=== PATIENT | female | born 2000 | race Caucasian/White ===

== ENCOUNTER 2019-07-20 02:07 | Outpatient (CLI) | payer OTHER ==
[2019-07-20] MEDS ORDERED: LACTATED RINGERS 1,000 ML ONE (03:34)
[2019-07-20] MEDS ORDERED: LACTATED RINGERS 1,000 ML IV ONE (04:32)
[2019-07-20 05:09] LABS: Bacteria,Urine 1+ /HPF (Negative); Bilirubin,Urine NEG (Negative); Blood,Urine SM (Negative); Color,Urine Yellow (Yellow); Protein,Urine <15 mg/dL mg/dL (Negative); Urobilinogen,Urine < 2.0 mg/dL (<2.0)
[2019-07-20 05:12] LABS: Amphetamine Screen,Urine PRESUMPTIVE NEGATIVE; Benzodiazepines Screen,Urine PRESUMPTIVE NEGATIVE; Cannabinoid Screen,Urine PRESUMPTIVE NEGATIVE; Cocaine Screen,Urine PRESUMPTIVE NEGATIVE; Methadone Screen,Urine PRESUMPTIVE NEGATIVE; Opiate Screen,Urine PRESUMPTIVE NEGATIVE
[2019-07-20] MEDS ORDERED: TERBUTALINE 1 MG/1 ML INJ SUB-Q ONE (05:26)
--- NOTE | 2019-07-20 06:17 | Ultrasound Report ---
ULTRASOUND BIOPHYSICAL PROFILE AND LIMITED OB ULTRASOUND INDICATION / CLINICAL INFORMATION: R/O ABRUPTION. well-being. COMPARISON: None available. FINDINGS: BREATHING MOVEMENT = 2 GROSS BODY MOVEMENT = 2 TONE = 2 QUALITATIVE AMNIOTIC FLUID VOLUME = 2 TOTAL BIOPHYSICAL SCORE = 8/8 AMNIOTIC FLUID INDEX (cm) = 15.2 PRESENTATION: Cephalic. HEART RATE (beats per minute): 138 The placenta is located anteriorly on the left, is grade 2 and is free of the os. There is no evidenc e of abruption. IMPRESSION: 1. biophysical profile = 8/8 2. No evidence of abruption. Signer Name: Haroldo Conway MD Signed: 07/20/2019 6:13 AM Workstation Name: [id number]
[2019-07-20] MEDS ORDERED: ACETAMINOPHEN 500 MG TAB PO ONE (06:30)
[2019-07-20 06:44] VITALS: BP 115/62
== END 2019-07-20 06:56 | disposition home or self-care (01) ==
LOC: TRG 02:07
PROVIDERS: ATTEND Obstetrics & Gynecology
DX: O26.893 Other specified pregnancy related conditions, third trimester (principal); M54.9 Dorsalgia, unspecified; O47.03 False labor before 37 completed weeks of gestation, third trimester; Z3A.34 34 weeks gestation of pregnancy
CPT/HCPCS: 76815; 76819; 80307; 81001; 87086; 96360; 96372; J3105; J7120

== ENCOUNTER 2019-08-30 05:21 | Inpatient (IN) | payer OTHER, SELFPAY ==
[2019-08-30 08:38] LABS: Basophils % (Auto) 0.4 % (0.0-1.8); Eosinophils # (Auto) 0.1 K/mm3 (0.0-0.4); Eosinophils % (Auto) 1.3 % (0.0-4.3); Hematocrit 39.4 % (30.3-42.9); Hemoglobin 13.4 gm/dl (10.1-14.3); Lymphocytes # (Auto) 1.4 K/mm3 (1.2-5.4); Lymphocytes % (Auto) 16.2 % (13.4-35.0); Mean Corpuscular HGB Conc 34 % (30-34); Mean Corpuscular Volume 94 fl (79-97); Monocytes # (Auto) 0.6 K/mm3 (0.0-0.8); Monocytes % (Auto) 6.7 % (0.0-7.3); Platelet Count 232 K/mm3 (140-440); Red Blood Count 4.18 M/mm3 (3.65-5.03); Red Cell Distribution Width 13.4 % (13.2-15.2)
[2019-08-30] MEDS ORDERED: LACTATED RINGERS 1,000 ML ONE (09:08)
[2019-08-30] MEDS ORDERED: MINERAL OIL 30 ML ORAL LIQD PO PRN (10:50)
[2019-08-30] MEDS ORDERED: TERBUTALINE 1 MG/1 ML INJ SUB-Q PRN (10:50)
[2019-08-30] MEDS ORDERED: ePHEDrine SULFATE 50 MG/1 ML INJ IV PRN ×2 (10:50→19:37)
[2019-08-30] MEDS ORDERED: LIDOCAINE (2%) 20 MG/1 ML VIAL 20 ML MDV INFILTRATI ONE ×2 (10:50→14:21)
[2019-08-30] MEDS ORDERED: TERBUTALINE 1 MG/1 ML INJ IVP PRN (10:50)
[2019-08-30] MEDS ORDERED: BUTORPHANOL 2 MG/1 ML INJ IV PRN ×2 (10:50)
--- NOTE | 2019-08-30 10:56 | History and Physical Report ---
History of Present Illness Date of examination: 08/30/19 Date of admission: 08/30/19 Chief complaint: Contractions History of present illness: 18yo G 1 P o @ 39 weeks 6 days here with c/o contractions. She reports +FMs but denies VB or LOF. She is a [facility] patient who initiated care at 11 weeks gestation. Her course has been unremarkable. LABS: O pos, Antibody Screen neg, RI, VDRL neg, HBsAg neg, HIV neg, GC/CT neg, MSAFP neg, Diabetes 86, GBS neg. Past History Past Medical History: no pertinent history Past Surgical History: no surgical history Family/Genetic History: none Social history: single, lives with family, IV drug use. denies: smoking, alcohol abuse, prescription drug abuse - Obstetrical History Expected Date of Delivery: 08/31/19 Actual Gestation: 39 Week(s) 6 Day(s) : 1 Para: 0 Hx # Term Pregnancies: 0 Number of Pregnancies: 0 Spontaneous Abortions: 0 Induced : 0 Number of Living Children: 0 Medications and Allergies Allergies Allergy/AdvReac Type Severity Reaction Status Date / Time No Known Allergies Allergy Verified 07/20/19 04:38 Active Meds: Active Medications Butorphanol Tartrate (Stadol) 1 mg IV Q2H PRN PRN Reason: Pain, Moderate(4-6) LABOR PAIN Butorphanol Tartrate (Stadol) 2 mg IV Q2H PRN PRN Reason: Pain , Severe (7-10) Ephedrine Sulfate (Ephedrine Sulfate) 10 mg IV Q2M PRN PRN Reason: Hypotension Fentanyl (Sublimaze) 100 mcg IV Q2H PRN PRN Reason: Pain,Severe (7-10) LABOR PAIN Oxytocin/Sodium Chloride (Pitocin/Ns 20 Unit/1000ml Drip) 20 units in 1,000 mls @ 125 mls/hr IV DIRECT MAYA Oxytocin/Sodium Chloride (Pitocin/Ns 30 Unit/500ml) 30 units in 500 mls @ 0 mls/hr IV TITR MAYA; Protocol Lactated Ringer's (Lactated Ringers) 1,000 mls @ 125 mls/hr IV DIRECT MAYA Lidocaine (Xylocaine 2%) 20 ml INFILTRATI ONCE ONE Stop: 08/30/19 10:51 Mineral Oil (Mineral Oil) 30 ml PO QHS PRN PRN Reason: Constipation Terbutaline Sulfate (Brethine) 0.25 mg SUB-Q ONCE PRN PRN Reason: Hyperstimulation/Hypertonicity Terbutaline Sulfate (Brethine) 0.25 mg IVP ONCE PRN PRN Reason: Hyperstimulation/Hypertonicity Review of Systems All systems: negative - Vital Signs Vital signs: Vital Signs Pulse BP 70 119/78 08/30/19 06:27 08/30/19 06:27 Temp Pulse Resp BP Pulse Ox 98.8 F 68 18 115/66 98 08/30/19 06:29 08/30/19 10:53 08/30/19 06:29 08/30/19 10:28 08/30/19 10:53 - Obstetrical FHR: auscultation normal, category 1 Uterine Contraction Monitor Mode: External Cervical Dilatation: 4.5 Cervical Effacement Percentage: 70 station: -3 Uterine Contraction Frequency (min): 2-5 Uterine Contraction Pattern: Regular Results Result Diagrams: 08/30/19 08:03 Abnormal lab results 08/30/19 Range/Units 08:03 Seg Neutrophils % 75.4 H (40.0-70.0) % All other labs normal. Assessment and Plan - Patient Problems (1) 39 weeks gestation of Current Visit: Yes Status: Acute (2) Active labor at term Current Visit: Yes Status: Acute Plan to address problem: Admit to L&D with routine labor orders Start oxytocin for labor augmentation Anticipate vaginal delivery
[2019-08-30] MEDS ORDERED: OXYTOCIN 20 UNIT/1000ML DRIP 20 UNITS/1,000 ML BAG IV SCH ×3 (11:00→22:00)
[2019-08-30] MEDS ORDERED: OXYTOCIN DRIP 30 UNITS/500 ML BAG IV SCH (11:00)
[2019-08-30] MEDS: fentaNYL 100 MCG/2 ML INJ IV PRN ×2 (12:11→15:02)
[2019-08-30] MEDS ORDERED: ONDANSETRON 4 MG/2 ML INJ ONE (12:11)
[2019-08-30] MEDS ORDERED: ONDANSETRON 4 MG/2 ML INJ IV PRN ×2 (12:30→21:12)
[2019-08-30] MEDS: LACTATED RINGERS 1,000 ML IV SCH ×2 (13:16→18:00)
--- NOTE | 2019-08-30 17:49 | Event Note ---
Date: 08/30/19 Assumed care of patient at 5:15 PM. RN states patient had been pushing for 30 minutes prior to my coming regional transfer liaison. Contractions every 2-3 minutes, moderate to strong; uterus palpates soft between contractions. Difficulty tracing FHR with external monitor. FSE placed to better trace heart rate. Patient positioned in left lateral position. SVE complete, minus 1 station. Plan epidural. Reviewed FHR tracing; FHR baseline 115 with moderate variability and variable FHR decelerations. Patient has oxygen per face mask at 10 LPM. Pitocin has been turned off. Will consult with Dr. Pinzon re: this patient.
--- NOTE | 2019-08-30 19:00 | Event Note ---
Date: 08/30/19 Patient has been pushing intermittently. Cervix is complete and fetus is at -1 to 0 station with caput. Fetus has been in OP position. Patient has been positioned in left lateral then right lateral position. Patient has agreed to epidural and IV fluid bolus is being given. Called Dr. Pinzon at 18:48 and asked him to come in and evaluate patient due to FHR tracing (variable decelerations) and size of baby and station. Dr. Pinzon states he will come in and evaluate patient. Discussed this plan with patient and her S.O. Contractions are every 2-3 minutes and uterus palpates soft between contractions. Patient is afebrile. VSS.
[2019-08-30] MEDS ORDERED: fentaNYL-BUPIV 2 MCG/ML-0.125% 200 MCG/100 ML BAG EPIDURAL ONE (19:05)
[2019-08-30] MEDS ORDERED: DEXMEDETOMIDINE 200 MCG/2 ML VIAL IV ONE (19:06)
[2019-08-30] MEDS ORDERED: NALOXONE 2 MG/2 ML INJ IV PRN (19:37)
--- NOTE | 2019-08-30 19:37 | Anesthesia Consultation ---
Anesthesia Consult and Med Hx Date of service: 08/30/19 - Airway Anesthetic Teeth Evaluation: Good ROM Head & Neck: Adequate Mental/Hyoid Distance: Adequate Mallampati Class: Class II Intubation Access Assessment: Probably Good - Pulmonary Exam CTA: Yes - Cardiac Exam Cardiac Exam: RRR - Pre-Operative Health Status ASA Pre-Surgery Classification: ASA2 Proposed Anesthetic Plan: Epidural - Pulmonary Hx Asthma: No - Cardiovascular System Hx Hypertension: No - Central Nervous System Hx Seizures: No Hx Psychiatric Problems: No - Endocrine Hx Renal Disease: No Hx Hypothyroidism: No Hx Hyperthyroidism: No - Hematic Hx Anemia: No Hx Sickle Cell Disease: No - Other Systems Hx Alcohol Use: No
[2019-08-30] MEDS ORDERED: BICITRA ORAL LIQD 30ML ONE (19:40)
[2019-08-30] MEDS ORDERED: METOCLOPRAMIDE 10 MG/2 ML INJ ONE (19:40)
[2019-08-30] MEDS ORDERED: FAMOTIDINE 20 MG/2 ML INJ IV ONE ×2 (19:40→20:00)
[2019-08-30] MEDS ORDERED: ceFAZolin/Water 2 GM/20 ML 2 GM/20 ML SYRINGE IV ONE (19:56)
[2019-08-30] MEDS ORDERED: METOCLOPRAMIDE 10 MG/2 ML INJ IV ONE (20:00)
[2019-08-30] MEDS ORDERED: ceFAZolin/Water 2 GM/20 ML 2 GM/20 ML SYRINGE IV SCH (20:00)
[2019-08-30] MEDS ORDERED: BICITRA ORAL LIQD 30ML PO ONE (20:00)
[2019-08-30] MEDS ORDERED: fentaNYL-BUPIV 2 MCG/ML-0.125% 200 MCG/100 ML BAG EPIDURAL SCH (20:00)
[2019-08-30] MEDS ORDERED: LACTATED RINGERS 1,000 ML IV SCH (20:00)
[2019-08-30] MEDS ORDERED: WATER FOR IRRIG STERILE 1,500 ML BOTTLE IR ONE (20:05)
[2019-08-30] MEDS ORDERED: ceFAZolin/STERILE WATER 2 GM/20 ML SYRINGE IV ONE ×2 (20:05→20:20)
[2019-08-30] MEDS ORDERED: SODIUM CHLORIDE 0.9% IRR 1,500 ML BOTTLE IR ONE (20:05)
[2019-08-30] MEDS ORDERED: KETOROLAC 30 MG/1 ML INJ ONE (21:03)
[2019-08-30] MEDS ORDERED: LIDOCAINE 2%/EPINEPHRINE 1:200,000 VIAL (20 ML) INFILTRATI ONE (21:04)
[2019-08-30] MEDS ORDERED: OXYTOCIN 10 UNIT/1 ML INJ ONE (21:04)
[2019-08-30] MEDS ORDERED: SODIUM BICARB 8.4% 50 MEQ/50 ML VIAL IV ONE (21:04)
--- NOTE | 2019-08-30 21:07 | Event Note ---
Date: 08/30/19 CPD: large baby, OP at 0-3, narrow inlet, short maternal stature. Plan: .
[2019-08-30] MEDS ORDERED: LANOLIN/ZINC/DIMETHICONE (LANSINOH) 7 GM TP PRN (21:12)
[2019-08-30] MEDS ORDERED: ACETAMINOPHEN 325 MG TAB PO PRN (21:12)
[2019-08-30] MEDS ORDERED: MORPHINE 4 MG/1 ML INJ IV PRN (21:12)
[2019-08-30] MEDS ORDERED: WITCH HAZEL/ GLYCERIN PAD TP PRN (21:12)
[2019-08-30] MEDS ORDERED: NALOXONE 0.4 MG/1 ML INJ IV PRN (21:12)
--- NOTE | 2019-08-30 21:12 | Operative Report ---
Operative Report Operative Report: Date of surgery: August 30, 2019 Preoperative diagnoses: Full dilatation, non-descent of head, short statur e large baby, occiput posterior position, CPD Postoperative diagnoses: The same. Operation: Lower segment transverse delivery Surgeon:Laura Pinzon MD [place] Department Manager: Richard Sanchez CRNA Anesthesia: Spinal block Estimated blood loss: 500 mL Complications: None Findings: Live baby boy, weight 8 pounds 1 ounce, Apgars 8 and 9, normal ovaries, fallopian tubes uterus. The fetus was in the false maternal pelvis and occiput posterior. Procedure in detail: The patient was taken to the operating room and given a spinal block. Patient was placed in the straight supine position and a Gordon catheter was inserted. The patient was prepped in the abdomen. The drapes were placed. A timeout was done. With the go ahead from the notary public, a Pfannenstiel incision was made. This incision was carried across the subcutaneous layer to the fascia which was also divided transversely. The recti abdominis muscle flaps were stripped from the fascia using a combination of blunt and sharp dissections. The muscles were in the midline to gain access to the anterior parietal peritoneum which was divided after excluding any underlying viscera. The access to the peritoneal cavity was then widened by manual stretching. The bladder blade was applied. The utero vesicle peritoneal flap was divided transversely allowing the bladder to be displaced caudally. The uterine incision was placed in the lower segment transversely. The uterine incision was carried to the decidual layer. The uterine incision was extended on both sides using the bandage scissors. The amniotic sac was ruptured with clear fluid. The head was lifted out of the false maternal pelvis and delivered through the incision using fundal pressure. The airways were bulb suctioned beginning with the mouth. Continuing fundal pressure combined with traction on the mandibular processes of the jaw delivered the rest of the baby. The umbilical cord was double clamped and divided. The baby was carefully transferred to the pediatric team. The placenta was manually removed from the uterine cavity. The uterine cavity was explored and was empty of any placental remnants. The uterine incision was repaired in 2 layers with #1 Vicryl. The surgical line on the uterus was hemostatic. Blood and clots were cleared from the peritoneal cavity. The anterior parietal peritoneum was repaired with #1 Vicryl. The fascia was repaired with #1 Vicryl. The subcutaneous layer was made hemostatic using the Bovie before the skin was closed subcuticularly with 4-0 Vicryl. There were no complications. The estimated blood loss was 500 mL. All sponges and instrument counts were correct. Patient was safely transferred to the recovery room.
--- NOTE | 2019-08-30 21:17 | Post Anesthesia Evaluation ---
- Post Anesthesia Evaluation Patient Participated: Yes Airway Patent: Yes Stable Respiratory Function: Yes Nausea/Vomiting: No Temp > 96.8F: Yes Pain Manageable: Yes Adequeate Hydration: Yes Anesthesia Complications: No Block Receding Appropriately: Yes
[2019-08-31] MEDS: KETOROLAC 30 MG/1 ML INJ IV PRN ×3 (04:02→18:08)
[2019-08-31] MEDS: ceFAZolin/NS 1 GM/50 ML 1 GM/50 ML BAG IV SCH ×2 (04:04→12:07)
[2019-08-31] MEDS ORDERED: D5W/LACTATED RINGERS 1,000 ML IV SCH (05:00)
[2019-08-31 06:20] LABS: Hemoglobin 12.1 gm/dl (10.1-14.3); Mean Corpuscular HGB Conc 34 % (30-34); Mean Corpuscular Volume 95 fl (79-97); Platelet Count 212 K/mm3 (140-440); Red Blood Count 3.79 M/mm3 (3.65-5.03); Red Cell Distribution Width 13.3 % (13.2-15.2)
[2019-08-31 06:33] LABS: Bacteria,Urine 2+ /HPF (Negative); Bilirubin,Urine NEG (Negative); Blood,Urine LG (Negative); Color,Urine Yellow (Yellow); Mucus,Urine FEW /HPF; Urobilinogen,Urine < 2.0 mg/dL (<2.0)
[2019-08-31 06:35] LABS: RBC,Urine > 182.0 /HPF (0.0-6.0)
[2019-08-31 07:18] LABS: Anisocytosis 1+; Basophils % (Manual) 0 % (0.0-1.8); Eosinophils % (Manual) 0 % (0.0-4.3); Platelet Estimate Consistent w Auto; Total Cells Counted 100
[2019-08-31] MEDS: FERROUS SULFATE 325 MG TAB PO SCH (09:33)
[2019-08-31] MEDS: PRENATAL VIT27-FE FUMARATE-FOLIC ACID VIT TAB PO SCH (09:33)
[2019-08-31] MEDS: HYDROcodone/ACETAMINOPHEN 5-325 MG TAB PO PRN ×2 (09:34→21:56)
[2019-08-31 10:53] LABS: Hematocrit 34.3 % (30.3-42.9); Hemoglobin 11.5 gm/dl (10.1-14.3)
[2019-08-31] MEDS: AZITHROMYCIN 250 MG TAB PO SCH (12:09)
--- NOTE | 2019-08-31 17:20 | Progress Note ---
Assessment and Plan A: /postop day 1 S/P primary LTCS. Fever. Anemia. P: Supplement with iron. Encouraged ambulation. Urine C&S, blood cultures pendi ng. COVID testing pending. Subjective - Subjective Date of service: 08/31/19 Principal diagnosis: /postop day 1 S/P primary LTCS Interval history: /postop day 1 S/P primary LTCS. Doing well. Had fever overnight but this is resolving. Tested negative for flu; urine cultures and blood cultures pending. Patient reports: appetite normal, voiding normally, pain well controlled, flatus, ambulating normally, no dizzy ambulation, no nauseated [place]: doing well Objective - Vital Signs Latest vital signs: Vital Signs Temp Pulse Resp BP BP Pulse Ox 08/31/19 12:31 98.2 F 74 19 114/64 99 08/31/19 09:34 18 08/31/19 08:45 100.4 F H 96 H 19 111/63 96 08/31/19 06:02 20 08/31/19 05:02 101.1 F H 111 H 20 123/66 95 08/31/19 04:02 20 08/30/19 23:10 99.0 F 74 18 104/50 08/30/19 22:35 74 154/73 08/30/19 22:33 99.2 F 73 17 113/59 96 08/30/19 22:28 70 97 08/30/19 22:23 68 97 08/30/19 22:20 64 141/84 08/30/19 22:18 70 98 08/30/19 22:16 98.2 F 78 24 114/60 97 08/30/19 22:13 68 99 08/30/19 22:08 65 98 08/30/19 22:03 87 25 H 94/36 98 08/30/19 21:32 90/36 08/30/19 21:30 89/33 08/30/19 21:29 98/55 08/30/19 21:27 93/33 08/30/19 21:25 73 20 87/33 95 08/30/19 21:21 76 19 107/32 95 08/30/19 21:16 75 19 95/31 97 08/30/19 21:11 98.2 F 88 17 144/113 94 08/30/19 19:49 70 107/61 97 08/30/19 19:47 65 103/52 08/30/19 19:45 70 105/59 05 19:44 70 97 08/30/19 19:43 69 104/53 08/30/19 19:41 68 108/53 08/30/19 19:39 74 112/54 99 08/30/19 19:37 67 112/57 08/30/19 19:35 68 108/56 08/30/19 19:34 67 100 08/30/19 19:33 69 119/58 08/30/19 19:31 68 113/54 08/30/19 19:29 66 112/55 100 08/30/19 19:27 69 124/62 08/30/19 19:25 75 122/64 08/30/19 19:24 73 99 08/30/19 19:23 72 117/56 08/30/19 19:21 75 123/56 08/30/19 19:19 109 H 120/64 99 08/30/19 19:17 84 128/62 08/30/19 19:14 79 97 08/30/19 19:09 102 H 99 08/30/19 19:04 111 H 120/63 99 08/30/19 18:59 99 H 97 08/30/19 18:54 72 99 08/30/19 18:49 107 H 98 08/30/19 18:45 72 94 08/30/19 18:44 80 96 08/30/19 18:38 73 95 08/30/19 18:35 103 H 125/60 08/30/19 18:33 74 93 08/30/19 18:31 105 H 88 08/30/19 18:28 98.4 F 76 96 08/30/19 18:26 74 94 08/30/19 18:23 78 98 08/30/19 18:18 71 95 08/30/19 18:13 88 96 08/30/19 18:09 74 85 0508 18:08 84 95 05 18:04 71 119/54 08/30/19 18:03 97 H 95 08/30/19 18:01 70 91 08/30/19 17:58 77 96 05 17:53 88 97 08/30/19 17:48 72 96 08/30/19 17:43 77 97 08/30/19 17:38 110 H 97 08/30/19 17:35 67 111/51 08/30/19 17:33 94 H 98 08/30/19 17:28 113 H 99 08/30/19 17:23 90 98 08/30/19 17:18 77 99 Intake and Output 08/31/19 08/31/19 08/31/19 07:59 15:59 23:59 Intake Total 410 1100 Output Total 700 600 Balance -290 500 Intake: IV 50 ANCEF/NS 1 GM/50 ML 1 gm 50 In 50 ml @ 100 mls/hr IV Q8H [facility] Rx#:[id number] Oral 120 900 Intake, Free Water 240 200 Output: Urine 700 600 Indwelling Catheter 700 200 Self-Catheterization 400 Other: Total, Intake Amount 120 300 Total, Output Amount 700 400 # Voids Self-Catheterization 1 Estimated Blood Loss 500 - Exam Cardiovascular: Present: Regular rate, Normal S1, Normal S2 Lungs: Present: Clear to auscultation Abdomen: Present: normal appearance, soft, normal bowel sounds. Absent: distention, tenderness, guarding, rigidity Uterus: Present: normal, firm, fundal height below umbilicus. Absent: bogginess, tenderness Extremities: Present: normal. Absent: tenderness Incision: Present: normal, dry, dressed Comments: No CVAT bilaterally. - Labs Labs: Abnormal lab results 08/31/19 08/31/19 Range/Units 05:59 06:05 WBC 17.3 H (4.5-11.0) K/mm3 Seg Neuts % (Manual) 92.0 H (40.0-70.0) % Lymphocytes % (Manual) 6.0 L (13.4-35.0) % Seg Neutrophils # Man 15.9 H (1.8-7.7) K/mm3 Lymphocytes # (Manual) 1.0 L (1.2-5.4) K/mm3 Urine WBC (Auto) 79.0 H (0.0-6.0) /HPF
[2019-08-31] MEDS ORDERED: AZITHROMYCIN 250 MG TAB PO SCH (22:00)
[2019-09-01] MEDS: IBUPROFEN 800 MG TAB PO PRN ×2 (04:05→15:52)
[2019-09-01] MEDS ORDERED: DIPHtheria,PERTUSSIS(ACELL),TETANUS VACCINE/PF 0.5 ML VIAL IM ONE (06:00)
[2019-09-01] MEDS: HYDROcodone/ACETAMINOPHEN 5-325 MG TAB PO PRN ×2 (09:57→22:57)
[2019-09-01] MEDS: PRENATAL VIT27-FE FUMARATE-FOLIC ACID VIT TAB PO SCH (09:57)
[2019-09-01] MEDS: AZITHROMYCIN 250 MG TAB PO SCH (09:58)
[2019-09-01] MEDS: FERROUS SULFATE 325 MG TAB PO SCH (10:02)
--- NOTE | 2019-09-01 14:59 | Progress Note ---
Assessment and Plan A: /postop day 2 S/P primary LTCS. Fever, resolved. Anemia. P: Iron supplementation. Continue ambulation. Subjective - Subjective Date of service: 09/01/19 Principal diagnosis: /postop day 2 S/P primary LTCS Interval history: /postop day 2 S/P primary LTCS. Doing well. Fever has resolved. Voiding without difficulty, passing gas, ambulating well, tolerating regular diet. Patient reports: appetite normal, voiding normally, pain well controlled, flatus, ambulating normally, no dizzy ambulation, no nauseated [place]: doing well Objective - Vital Signs Latest vital signs: Vital Signs Temp Pulse Resp BP BP Pulse Ox 09/01/19 09:03 97.8 F 68 12 102/62 96 09/01/19 04:05 20 09/01/19 03:01 98.6 F 81 16 104/58 96 08/31/19 22:07 98.3 F 84 18 111/68 97 08/31/19 21:56 20 08/31/19 16:30 98.2 F 78 19 100/55 97 Intake and Output 08/31/19 09/01/19 09/01/19 23:59 07:59 15:59 Intake Total 400 480 Output Total 700 Balance -300 480 Intake: Oral 300 Intake, Free Water 100 480 Output: Urine 700 Void 700 Other: Total, Intake Amount 300 Total, Output Amount 700 # Voids Void 2 1 - Exam Cardiovascular: Present: Regular rate, Normal S1, Normal S2 Lungs: Present: Clear to auscultation Abdomen: Present: normal appearance, soft, normal bowel sounds. Absent: distention, tenderness, guarding, rigidity Uterus: Present: normal, firm, fundal height below umbilicus. Absent: bogginess, tenderness Extremities: Present: normal, edema (mild pedal edema bilaterally). Absent: tenderness
[2019-09-02] MEDS: IBUPROFEN 800 MG TAB PO PRN (07:54)
[2019-09-02] MEDS: PRENATAL VIT27-FE FUMARATE-FOLIC ACID VIT TAB PO SCH (11:14)
[2019-09-02] MEDS: FERROUS SULFATE 325 MG TAB PO SCH (11:14)
[2019-09-02] MEDS: AZITHROMYCIN 250 MG TAB PO SCH (11:14)
--- NOTE | 2019-09-02 11:30 | Progress Note ---
Assessment and Plan - Patient Problems (1) S/P primary low transverse Current Visit: Yes Status: Acute Plan to address problem: POD 3 - stable Continue routine postop orders Ambulation encouraged, as tolerated Abdominal binder ordered Discharge to home today Follow-up at [facility] as needed or in 1 week for incision check (2) Single live Current Visit: Yes Status: Acute Subjective - Subjective Date of service: 09/02/19 Principal diagnosis: POD #3; s/p Primary LTCS Interval history: see OG/SUPERVISOR INSPECTION ROOM - H&P, Event Notes, Operative Report and PP/SUPER[facility] [employer] ROOM Progress Notes Patient reports: appetite normal, voiding normally, pain well controlled, flatus, ambulating normally, no dizzy ambulation, no bowel movement [place]: doing well, nursing well Objective - Vital Signs Latest vital signs: Vital Signs Temp Pulse Resp BP BP Pulse Ox 09/02/19 08:30 98.2 F 67 20 111/68 09/02/19 07:54 20 09/02/19 00:19 98.4 F 71 18 106/57 97 09/01/19 16:57 98.1 F 68 14 102/51 98 Intake and Output 09/01/19 09/02/19 09/02/19 23:59 07:59 15:59 Intake Total 1120 120 320 Balance 1120 120 320 Intake: Oral 1020 120 320 Intake, Free Water 100 Other: Total, Intake Amount 240 120 320 Voiding Method Toilet # Voids Void 1 - Exam Cardiovascular: Present: Regular rate Lungs: Present: Clear to auscultation Abdomen: Present: normal appearance, soft Vulva: both: normal Uterus: Present: normal, firm, fundal height below umbilicus Extremities: Present: normal Incision: Present: normal, dry, intact Comments: scant lochia
--- NOTE | 2019-09-02 11:31 | Discharge Summary ---
Providers - Providers Date of Admission: 08/30/19 05:22 Date of discharge: 09/02/19 Attending physician: SAEED ALCANTAR MD Primary care physician: SAEED ALCANTAR MD Hospitalization Reason for admission: active labor, IUP at term Delivery: Procedure: primary low transverse Episiotomy: none Laceration: none Incision: normal, dry, intact Other procedures: none complications: other (fever of unknown origin) Discharge diagnosis: IUP at term delivered [place] baby: male Hospital course: Complicated by fever of unknown origin. Now resolved. Condition at discharge: Stable Disposition: DC- TO HOME OR SELFCARE - Discharge Diagnoses (1) S/P primary low transverse Status: Acute (2) Single live Status: Acute Plan - Discharge Medications Prescriptions: Ibuprofen [Motrin 800 MG tab] 800 mg PO Q6H PRN #30 tablet PRN Reason: Pain, Mild (1-3) HYDROcodone/APAP 5-325 [[place]igo 5/325] 1 - 2 each PO Q4HR PRN #30 tablet PRN Reason: Pain - Provider Discharge Summary Activity: routine, no sex for 6 weeks, no heavy lifting 4 weeks, no strenuous exercise Diet: routine Instructions: routine Additional instructions: [] Smoking cessation referral if applicable(refer to patient education folder for contact #) [] Refer to [facility]'s [facility] Booklet Call your doctor immediately for: * Fever > 100.5 * Heavy vaginal bleeding ( >1 pad per hour) * Severe persistent headache * Shortness of breath * Reddened, hot, painful area to leg or breast * Drainage or odor from incision. * Keep incision clean and dry at all times and follow doctor's instructions regarding bathing/showering - Follow up plan Follow up: SAEED ALCANTAR MD [Primary Care Provider] - 7 Days (Follow-up at [facility] as needed or in 1 week for incision check) Forms: [facility] Discharge Summary
[2019-09-03 11:27] VITALS: BP 100/49
== END 2019-09-02 14:00 | disposition home or self-care (01) | DRG 788 ==
LOC: TRG 05:21 → LD 05:22 → APU 05:33 → LD 08:13 → APU 22:35 → OB 23:00
PROVIDERS: ADMIT Obstetrics & Gynecology; ATTEND Obstetrics & Gynecology
PROC: 10D00Z1 Extraction of Products of Conception, Low, Open Approach (ICD-10-PCS; principal; 2019-08-30)
PROC: 3E0234Z Introduction of Serum, Toxoid and Vaccine into Muscle, Percutaneous Approach (ICD-10-PCS; 2019-09-01)
DX: O64.0XX0 Obstructed labor due to incomplete rotation of fetal head, not applicable or unspecified (principal); O65.9 Obstructed labor due to maternal pelvic abnormality, unspecified; Z3A.39 39 weeks gestation of pregnancy; Z37.0 Single live birth; Z23 Encounter for immunization; Z20.828 Contact with and (suspected) exposure to other viral communicable diseases
CPT/HCPCS: 36415; 81001; 85007; 85014; 85018; 85025; 86592; 86850; 86900; 86901; 87040; 87086; 87400; 87806; 88307; 90471; 90715; G0378; J0690; J1885; J2405; J2590; J2765; J3010; J3490; J7120; J7121; U0003